=== PATIENT | female | born 1970 | race Caucasian/White ===

== ENCOUNTER 2025-06-28 12:16 | Emergency (ER) | payer BC, SELFPAY ==
[2025-06-28 12:17] VITALS: BP 157/98; PULSE 84; RESP 14; TEMP 36.1; O2SAT 98; BMI 28.2
--- NOTE | 2025-06-28 12:34 | EX.ED.DYSGE1 ---
HPI History of Present Illness Chief Complaint: Complaint Detail of Chief Complaint: Pressure, hematuria, dysuria and chills Informant: patient Onset/Context/Timing Onset: Yesterday (Last evening started with pressure suprapubic area and chills.) Timing: Intermittent Quality: Suprapubic pressure Location: Current Severity: Mild Maximum Severity: Moderate Worsened by: Urination Relieved by: Nothing Associated Symptoms Associated Symptoms: Chills last evening Narrative Narrative: Patient is a 55-year-old woman with history of hypertension on a GLP-1 medication for weight loss. She presents because of pressure sensation in the pelvic area that started last evening and had chills last evening. She did not take her temperature. She has had no nausea or vomiting. She denies low back pain or flank pain. She denies vaginal bleeding. She is status post hysterectomy. She has not had a urinary tract infection in some time. Prior similar symptoms: Yes Recent Illness/Hospitalization: No PFSH PFSH Medical History (Updated 06/28/25 @ 13:[address] Lico Wallis MD) HTN (hypertension) Home Medications ?Medication ?Instructions ?Recorded ?Last Taken ?Type cephalexin 500 mg capsule 500 mg PO Q6 #28 CAPSULES 06/28/25 Unknown Rx phenazopyridine 200 mg tablet 200 mg PO TID #6 tabs 06/28/25 Unknown Rx (Pyridium) Allergy/AdvReac Type Severity Reaction Status Date / Time mariah Allergy Anaphylaxis Verified 06/28/25 12:18 Surgical History H/O: hysterectomy Social History Smoking Status: Never smoker ROS ROS ED Constitutional Constitutional ED: Reports chills; Denies fever(s), subjective or sweats Eyes Eyes: Denies blurry vision or change in vision ENT ENT ED: Denies ear pain, rhinorrhea or sore throat Cardiovascular Cardiovascular: Denies chest pain Respiratory/Chest Respiratory/Chest: Denies cough or dyspnea Gastrointestinal Gastrointestinal: Denies abdominal pain, nausea or vomiting Genitourinary Genitourinary ED: Reports dysuria, hematuria, urinary frequency and other Details: Pelvic pressure without low back pressure or flank discomfort Musculoskeletal Musculoskeletal: Denies arthralgias, back pain or myalgias Integumentary Denies rash EXAM Physical Exam Const Vital Signs: 06/28/25 12:17 06/28/25 13:19 Temperature 97 F L 99 F Temperature Source Temporal Oral Pulse Rate 84 72 Respiratory Rate 14 16 Blood Pressure 157/98 H 166/97 H Blood Pressure Mean 117 120 Pulse Ox 98 97 Oxygen Delivery Method Room Air Room Air Positive well nourished and well developed General Appearance ED: well developed and NAD; Negative for pallor HEENT Reports moist mucous membranes HEENT Narrative: There is atraumatic no cephalic. Ears normal. Eyes PERRL and EOMs intact bilaterally General Eye ED: Negative for scleral icterus Neck supple and no JVD Resp normal respiratory effort Cardio regular rate and regular rhythm GI normal to inspection, nondistended, normoactive bowel sounds and non-distended; Negative for non-tender, hepatosplenomegaly or no masses Palpation: tender suprapubic; Negative for guarding or splenomegaly Back/Spine no CVA tenderness Extremity normal to inspection Neuro oriented x3 and CN's II-XII intact bilaterally Sensorium / Orientation: alert Psych mental status grossly normal Skin no rashes or lesions noted, no wounds and skin turgor normal General Skin Exam: elasticity normal; Negative for jaundice or pallor MDM MDM MDM Narrative Medical decision making narrative: Patient has history and physical consistent with hemorrhagic cystitis. Doubt renal/ureteral lithiasis, diverticulitis, bladder tumor. Will obtain UA to assess for infection. Because she reports chills CBC was obtained assess white count differential and BMP to assess renal function and determine if antibiotic dosage needs to be adjusted. History & Record Review Additional record(s) reviewed:: Prior labs Lab Data Attestation: I reviewed the patient's lab results. Lab results narrative: White count is elevated 17.2 thousand with shift. There is no bandemia. H&H and indices are normal. Macro urine is remarkable for it being cloudy and blood-tinged. Macro was positive for protein, occult blood and leukoesterase. Negative for nitrites. Basic metabolic panel is normal. Labs: Laboratory Results - last 24 hr 06/28/25 12:35 WBC 17.2 H RBC 4.89 Hgb 14.8 Hct 41.9 MCV 85.7 MCH 30.3 MCHC 35.3 RDW Std Deviation 38.0 RDW Coeff of Jelena 12.1 Plt Count 265 MPV 8.9 Immature Gran % (Auto) 0.400 Neut % (Auto) 82.1 H Lymph % (Auto) 9.3 L [place] % (Auto) 6.8 Eos % (Auto) 0.9 Baso % (Auto) 0.5 Absolute Neuts (auto) 14.1 H Absolute Lymphs (auto) 1.60 Nucleated RBC % 0 Sodium 138 Potassium 4.1 Chloride 100 Carbon Dioxide 29.5 Anion Gap 9 BUN 15 Creatinine 0.96 Estim Creat Clear Calc 70.39 Est GFR (MDRD) Non-Af 70 BUN/Creatinine Ratio 15.5 Glucose 92 Calcium 9.6 Urine Color SEE COMMENT BELOW Urine Clarity Cloudy Urine pH 6.0 Ur Specific [place] 1.010 Urine Protein 100 H Urine Glucose (UA) Normal Urine Ketones Negative Urine Occult Blood 250 H Urine Nitrite Negative Urine Bilirubin Negative Urine Urobilinogen Normal Ur Leukocyte Esterase 500 H Urine RBC > 100 SEEN Urine WBC >100 SEEN Ur Squamous Epith Cells 0 SEEN Urine Bacteria 0 SEEN Urine Mucus 0 SEEN Micro reveals greater than 100 RBCs and WBCs. Apparently there is no bacteria however she is going frequently and may lead to a false negative urinalysis. Patient was informed of her results. She states that her is a physician. She is going to call them and if he wishes to speak with me will gladly speak with him. She is from out of town. Patient and live in [place]. Plan is to leave tomorrow. Treatment and Re-Evaluation :: Plan is to discharge with cephalexin. Since patient only has 1 SIRS criteria she does not have sepsis. Therefore blood cultures not obtained in my opinion she can be treated as an outpatient. There is a possibility that she may require admission. Discharge Plan Triage Chief Complaint: Complaint ED Provider: Lico Wallis Dx/Rx/DC Orders Clinical Impression: Complicated urinary tract infection, Leukocytosis, Elevated blood pressure reading with diagnosis of hypertension Instructions: Urinary Tract Infections in Women Prescriptions: New phenazopyridine [Pyridium] 200 mg tablet 200 mg PO TID Qty: 6 0RF cephalexin 500 mg capsule 500 mg PO Q6 Qty: 28 0RF Primary Care Provider: Care Physician,No Primary Referrals: Care Physician,No Primary [Primary Care Provider, Medical] Doctor,Your [Non-Staff, None] - 3-5 Days if not improving Print Language: Azeri Disposition Disposition: Home, Self Care
[2025-06-28 12:46] LABS: Mucous, Urine 0 SEEN /hpf (<or=2+); Squamous Epithelial Cells - UA 0 SEEN /hpf (5-10)
[2025-06-28 12:51] LABS: Hematocrit 41.9 % (37-47); Hemoglobin 14.8 g/dL (12.0-15.0); Immature Granulocytes Count 0.070 X10^3/uL (0.0-0.0); Mean Corp Hgb Conc 35.3 g/dL (32-36); Mean Corpuscular Volume 85.7 fL (81-99); Mean Platelet Vol. 8.9 fl (6.2-12.0); NRBC Flagged by Analyzer 0 % (0-5); Platelet Count 265 K/mm3 (150-450); RBC Distribution Width CV 12.1 % (11.6-14.6); RBC Distribution Width SD 38.0 fl (35.1-43.9); Red Blood Count 4.89 M/mm3 (4.2-5.4); White Blood Count 17.2 K/mm3 (4.4-11.0)
[2025-06-28 12:52] LABS: Glucose, Dipstick Normal (Normal); Ketone-Dipstick Negative (Negative); Leukocyte Esterase-Dipstick 500 /ul (Negative); Nitrite-Dipstick Negative (Negative); Occult Blood-Urine 250 /ul (Negative); Protein-Dipstick 100 mg/dl (Negative); Specific Gravity, Urine 1.010 (1.002-1.030); Urine Bilirubin Dipstick Negative (Negative)
[2025-06-28 12:54] LABS: Color, Urine SEE COMMENT BELOW (Yellow)
[2025-06-28 13:01] LABS: Red Blood Cells-Urine > 100 SEEN /hpf (0-5)
[2025-06-28 13:19] VITALS: BP 166/97; PULSE 72; RESP 16; TEMP 37.2; O2SAT 97
[2025-06-28] MEDS: Ceftriaxone 2 GM in 0.9% Normal Saline (50mL MB+) 50 ML IV (13:22)
[2025-06-28 13:25] LABS: Anion Gap 9 (5-15); BUN 15 mg/dL (4-19); BUN/Creat Ratio 15.5 RATIO (10-20); Calcium,Total 9.6 mg/dL (7.6-11.0); Carbon Dioxide 29.5 mmol/L (21.0-32.0); Chloride 100 mmol/L (98-108); Estimated Creatinine Clearance 70.39 ml/min (50-250); Glucose 92 mg/dL (70-99); Potassium 4.1 mmol/L (3.3-5.1)
[2025-06-28 14:26] VITALS: BP 134/78; PULSE 72; RESP 16; TEMP 37.1; O2SAT 99
== END 2025-06-28 14:27 | disposition home or self-care (01) ==
PROVIDERS: Emergency Provider Emergency Medicine; Visit Provider Emergency Medicine
DX: N39.0 Urinary tract infection, site not specified (principal); D72.829 Elevated white blood cell count, unspecified; Z90.710 Acquired absence of both cervix and uterus; R31.9 Hematuria, unspecified; R03.0 Elevated blood-pressure reading, without diagnosis of hypertension
CPT/HCPCS: 80048; 81001; 85025; 87077; 87086; 87088; 87186; 96365; 99283; A4216; J0696